=== PATIENT | female | born 1955 | race Caucasian/White ===

== ENCOUNTER 2017-03-03 23:42 | Emergency (ER) | payer OTHER | END 2017-03-04 02:20 | disposition home or self-care (01) | LOC: ER 23:42 | DX: R07.89 Other chest pain (principal); E78.00 Pure hypercholesterolemia, unspecified; E78.5 Hyperlipidemia, unspecified; M54.9 Dorsalgia, unspecified; Z79.899 Other long term (current) drug therapy; Z91.040 Latex allergy status | CPT/HCPCS: 36415; 96374; 96375; J1885 ==